=== PATIENT | female | born 1970 | race African-American/Black ===

== ENCOUNTER 2020-06-24 20:22 | Emergency (ER) | payer SELFPAY ==
[~2020-06-24] VITALS: Ht 170.2 cm; Wt 84.0 kg
[2020-06-24 21:28] VITALS: BP 157/96
== END 2020-06-25 01:54 | disposition left against medical advice (07) ==
LOC: ER 20:22
DX: Z20.828 Contact with and (suspected) exposure to other viral communicable diseases (principal); Z53.21 Procedure and treatment not carried out due to patient leaving prior to being seen by health care provider